=== PATIENT | male | born 1945 | race Caucasian/White ===

== ENCOUNTER → 2019-06-30 08:27 | Outpatient (CLI) | payer MEDICARE, OTHER, SELFPAY ==
[2018-12-30 11:55] VITALS: BMI 30.1
--- NOTE | 2019-06-30 08:29 | ECHOD_ITS ---
Reason For Study: Afib, Aflutter Procedure This was a 2D Doppler, Color Flow transthoracic echocardiogram. Exam performed in department. Left Ventricle Normal LV size. Mid cavitary false tendon noted. Left ventricular systolic function is normal. The estimated ejection fraction is 55 %. No regional wall motion abnormalities noted. Right Ventricle Normal RV size. Normal systolic function. Atria The left atrium is mildly enlarged. The right atrium is mildly enlarged. Tricuspid Valve Normal tricuspid valve. Mild to moderate (1-2+) tricuspid valve insufficiency. Pulmonary artery systolic pressure is 52 mmHg. Moderate pulmonary hypertension. Aortic Valve Trisinus/trileaflet aortic valve. Mild focal aortic valve calcification. Peak aortic valve gradient 49 mmHg. Mean aortic valve gradient 30 mmHg. Moderate aortic stenosis. Mild (1+) aortic valve insufficiency. Pulmonic Valve Normal pulmonic valve. Great Vessels Normal aortic root. The pulmonary artery is normal size. Normal inferior vena cava. Pericardium/Pleural No pericardial effusion. MMode/2D Measurements & Calculations LVIDd: 4.9 cm IVSd: 1.2 cm LVOT diam: 2.0 cm LVIDs: 3.8 cm LVPWd: 1.0 cm LVOT area: 3.0 cm2 RVDd: 3.3 cm FS: 21.5 % Ao root diam: 3.0 cm LAV(MOD-bp): 64.5 ml LVAd ap4: 28.0 cm2 LAV(MOD-bp) Indexed: 30.1 ml/m2 EDV(MOD-sp4): 87.2 ml LAV(MOD-sp2): 63.5 ml EDV(sp4-el): 89.6 ml LAV(MOD-sp4): 65.1 ml LVAs ap4: 17.3 cm2 ESV(MOD-sp4): 38.5 ml ESV(sp4-el): 39.8 ml EF(MOD-sp4): 55.8 % EF(sp4-el): 55.6 % SV(MOD-sp4): 48.7 ml SV(sp4-el): 49.8 ml LA A4 area: 22.4 cm2 LA dimension(2D): 4.9 cm RA A4 area: 21.1 cm2 Doppler Measurements & Calculations MV E max julia: 136.1 cm/sec MV V2 max: 143.0 cm/sec Ao V2 max: 351.0 cm/sec MV max P.2 mmHg Ao max P.4 mmHg MV V2 mean: 84.4 cm/sec Ao V2 mean: 261.6 cm/sec MV mean P.4 mmHg Ao mean P.7 mmHg MV V2 VTI: 28.0 cm Ao V2 VTI: 86.2 cm MVA(VTI): 2.3 cm2 SRAVAN(I,D): 0.75 cm2 SRAVAN(V,D): 0.71 cm2 AI max julia: 487.6 cm/sec LV V1 max: 83.1 cm/sec SV(LVOT): 64.3 ml AI max P.1 mmHg LV V1 max P.8 mmHg AI dec slope: 258.6 cm/sec2 LV V1 mean P.8 mmHg AI P1/2t: 552.2 msec LV V1 mean: 65.9 cm/sec LV V1 VTI: 21.4 cm PA V2 max: 89.2 cm/sec TR max julia: 345.5 cm/sec TR max P.7 mmHg Interpretation Summary Normal LV size. Left ventricular systolic function is normal. The estimated ejection fraction is 55 %. No regional wall motion abnormalities noted. Mean aortic valve gradient 30 mmHg. Moderate aortic stenosis. Mild (1+) aortic valve insufficiency. Pulmonary artery systolic pressure is 52 mmHg. Moderate pulmonary hypertension. Ordering Physician: Toney Vance Referring Physician: Daryn Burgess Performed By: Shirin Torrez, RDCS, RVT
== END ==
PROVIDERS: PCP Internal Medicine; Referring Provider Internal Medicine Cardiovascular Disease; Visit Provider Internal Medicine Cardiovascular Disease
DX: I35.2 Nonrheumatic aortic (valve) stenosis with insufficiency (principal)
CPT/HCPCS: 93306

== ENCOUNTER → 2019-11-02 12:53 | Outpatient (CLI) | payer MEDICARE, OTHER, SELFPAY ==
[2018-12-30 11:55] VITALS: BMI 30.1
[2019-11-02 13:16] LABS: International Normalized Ratio 2.7; Prothrombin Time (Protime)PT. 28.4 SECONDS (11.7-14.9)
== END ==
PROVIDERS: PCP Internal Medicine; Referring Provider Internal Medicine; Visit Provider Internal Medicine
DX: I48.20 Chronic atrial fibrillation, unspecified (principal)
CPT/HCPCS: 85610

== ENCOUNTER → 2022-12-06 | Outpatient (CLI) | payer MEDICARE, OTHER, SELFPAY ==
--- NOTE | 2022-12-06 12:49 | CT_ITS ---
STUDY: CT RIGHT SHOULDER REASON FOR EXAM: Male, 77 years old. Osteoarthrosis of the right shoulder. Preoperative planning. RADIATION DOSAGE (If Supplied By Facility): CTDIvol = ( 30.95 ) mGy, DLP = ( 742.25 ) mGycm TECHNIQUE: The patient was scanned in a multi detector CT scanner. High resolution transaxial imaging was performed without the administration of intravenous contrast material. Sagittal and coronal images were reconstructed. Individualized dose optimization techniques were used for this CT. COMPARISON: None. FINDINGS: Osteopenia. Superior migration of the humeral head which resides under the acromion with minimal erosive changes of the acromion. Findings compatible with rotator cuff degeneration. Moderate-sized glenohumeral joint effusion. Severe arthrosis of the glenohumeral joint with osteophytes and subchondral cyst formation. Moderate to severe arthrosis of the AC joint with marked AC joint hypertrophy. Normal soft tissues. CT/Extremity Upper without Contra IMPRESSION: Osteopenia with superior migration of the humeral head and minimal erosive changes of the acromion, compatible with rotator cuff degeneration. Severe arthrosis of the glenohumeral joint with a moderate-sized glenohumeral joint effusion. Moderate to severe arthrosis of the AC joint with marked AC joint hypertrophy. Electronically Signed: Arik Garcia MD at 13:46 EDT ,
== END | disposition home or self-care (01) ==
LOC: CT 12:45
PROVIDERS: PCP Internal Medicine; Referring Provider Student in an Organized Health Care Education/Training Program; Visit Provider Student in an Organized Health Care Education/Training Program
DX: M19.011 Primary osteoarthritis, right shoulder (principal); M25.511 Pain in right shoulder
CPT/HCPCS: 73200

== ENCOUNTER 2023-01-09 12:43 | Observation (INO) | payer MEDICARE, OTHER, SELFPAY ==
--- NOTE | 2022-12-31 11:01 | RAD_ITS ---
STUDY: X-RAY CHEST REASON FOR EXAM: Male, 77 years old patient presents for pre-op evaluation. TECHNIQUE: PA and lateral views of the chest. COMPARISON: Prior comparable comparison studies are not available for review at this time. FINDINGS: The patient has a left-sided intracardiac pacemaker. Lungs are hyperexpanded with prominence of the bronchovascular markings. There is no demonstrated pleural abnormality. There is mild cardiac enlargement. There appears to be aortic valvular prosthesis. Normal mediastinum and ml. There is prominence of the pulmonary hilar arteries with peripheral pulmonary vascular congestion. There is atherosclerotic calcification of the aortic arch with tortuosity. There are diffuse degenerative changes of the visualized thoracic spine. Normal visualized ribs, clavicles, and shoulders. There is no demonstrated abnormality of the visualized soft tissue structures of the upper abdomen. RAD/Chest PA and Lateral IMPRESSION: Cardiomegaly and mild pulmonary vascular congestion. Electronically Signed: Cristiane Carmona MD at 4:59 EDT ,
--- NOTE | 2022-12-31 11:02 | EKG12_ITS ---
Test Reason : PRE OP Blood Pressure : / mmHG Vent. Rate : 080 BPM Atrial Rate : 050 BPM P-R Int : 000 ms QRS Dur : 128 ms QT Int : 428 ms P-R-T Axes : 000 166 021 degrees QTc Int : 493 ms Ventricular-paced rhythm Biventricular pacemaker detected Abnormal ECG No previous ECGs available Confirmed by EHSAN LEZAMA, JR ([id number]), international editorial producer PAUL REICH ([id number]) on 01/01/2023 10:02:23 AM Referred By: Harlan Levin Confirmed By:FERNANDO MOSER MD
[2022-12-31 12:22] LABS: Partial Thromboplast Time 42.2 Seconds (24.1-36.2)
[2022-12-31 12:23] LABS: Absolute Lymphocyte Count 1.65 X10^3/uL (0.83-4.51); Absolute Neutrophil Count 5.4 X10^3/uL (2.0-7.7); Basophil# 0.02 X10^3/uL; Basophil% 0.2 % (0-1); Eosinophil# 0.09 X10^3/uL; Eosinophils% 1.1 % (0-5); Hematocrit 42.8 % (40-54); Hemoglobin 13.6 g/dL (13.0-16.5); Lymphocyte # 1.65 X10^3/ul (0.83-4.51); Lymphocyte % 20.5 % (19-41); Mean Corp Hgb Conc 31.8 g/dL (32-36); Mean Corpuscular Hgb 31.8 pg (27.0-32.0); Monocyte# 0.81 X10^3/uL; Monocyte% 10.1 % (0-10); NRBC Flagged by Analyzer 0 % (0-5); Neutrophil # 5.43 X10^3/uL (2.7-7.7); Neutrophil % 67.5 % (47-70); Platelet Count 212 K/mm3 (150-450); RBC Distribution Width CV 14.3 % (11.6-14.6); RBC Distribution Width SD 52.5 fl (35.1-43.9); Red Blood Count 4.28 M/mm3 (4.6-6.2); White Blood Count 8.1 K/mm3 (4.4-11.0)
[2022-12-31 12:44] LABS: Magnesium 2.4 mg/dL (1.6-2.6)
[2022-12-31 12:45] LABS: Albumin, Serum 3.5 g/dL (3.2-5.0); Anion Gap 5 (5-15); BUN 28 mg/dL (7-18); Calcium,Total 8.6 mg/dL (8.5-10.1); Chloride 107 mmol/L (98-107); Creatinine, Serum 1.87 mg/dL (0.70-1.30); EST Glomerular Filtration Rate 37 mL/min (>60); Est Glom Filt Rate - Afr Amer 45 mL/min (>60); Glucose 124 mg/dL (74-106); Potassium 4.4 mmol/L (3.5-5.1); Sodium Level 138 mmol/L (136-145)
[2023-01-09] VITALS (13 sets, daily range): BP systolic 106–161; BP diastolic 68–99; PULSE 79–87; RESP 14–22; TEMP 36.1–36.4; O2SAT 91–99; BMI 32.6
[2023-01-09 08:25] LABS: INR Fingerstick 1.5; Prothrombin Time Fingerstick 16.5 SEC (11.7-14.9)
[2023-01-09] MEDS: Gabapentin 600 MG Tablet PO (08:51)
[2023-01-09] MEDS: Acetaminophen 500 MG Tablet 1000 MG PO ×3 (08:51→21:28)
[2023-01-09] MEDS: Magnesium 1 GM over 15 mins IV (08:53)
[2023-01-09] MEDS: Lactated Ringers 1,000 ML 15 ML IV ×2 (08:56→13:20)
[2023-01-09] MEDS: Vancomycin HCl 1,500 MG in 0.9% Normal Saline (500mL Bag) 500 ML 250 MG IV (08:57)
--- NOTE | 2023-01-09 10:30 | SHO_PTH ---
PATIENT: SUGEY ZIEGLER LOC: [facility]3 U#:[id number] AGE/SX: 77/M ROOM: MT312 RE01/09/[address]: Dr. Harlan Levin DO : 1945 BED: 1 DIS: 01/10/2023 SPEC #: [id number] RECD: 01/09/23 14:39 STATUS: RIAZ HAQUEAmanda #: [id number] CHRISTIAN: 01/09/23 10:[address]: Harlan Levin DEPT: SURGICAL PATHOLOGY RECD BY: Olamide Fernández ENTERED: 01/10/23 07:51 SP TYPE: HUMERUS OTHR DR: DO Dr. Daryn Sotelo MD Tissues: Humerus, NOS Procedures: Decalcification bone/plaque Surgery Specimen Level IV HEADER OPERATION: ERAS, total shoulder replacement, Reverse PRE-OP DIAGNOSIS: Osteoarthritis right shoulder TISSUE SUBMITTED: Bone right shoulder MICROSCOPIC DIAGNOSIS Bone right shoulder, total shoulder replacement/resection: Humeral head with degenerative osteoarthritic changes. KAN:bay 01/15/2023 MICROSCOPIC DESCRIPTION Slides are reviewed. GROSS DESCRIPTION Received is one container labeled with the patient's name and designated bone right shoulder. The specimen consists of a humeral head measuring 5.0 x 5.0 x 1.5 cm. The articular surface shows areas of erosion and osteophyte formation. No soft tissue is identified. Asphalt Spreader Operator sections are submitted in one cassette after decalcification. / KAN:bay 01/10/2023 TC:5 CPT: 55027, 09702
[2023-01-09] MEDS: Cefazolin 2 GM in 0.9% Normal Saline (100mL Bag) 100 ML IV (10:45)
[2023-01-09] MEDS: TXA 1000mg in NS100 100ml (IVPB at Incision) 660 MG IV (10:55)
[2023-01-09 11:07] LABS: Bedside Glucose 121 mg/dL (74-106)
[2023-01-09 13:22] LABS: Bedside Glucose 124 mg/dL (74-106)
--- NOTE | 2023-01-09 13:35 | RAD_ITS ---
STUDY: X-RAY - RIGHT SHOULDER REASON FOR EXAM: Male, 77 years old. Postop from right shoulder replacement surgery TECHNIQUE: 2 view(s) of the shoulder. COMPARISON: None. FINDINGS: Patient is postop from replacement of the right glenohumeral joint. Alignment of the components is anatomic. No plain film evidence of postoperative complication. Normal postoperative soft tissue swelling and subcutaneous emphysema. Normal alignment of the AC joint. No upper rib fracture or pneumothorax RAD/Shoulder min 2 Views IMPRESSION: Replaced right glenohumeral joint demonstrates anatomic alignment, no plain film evidence of postoperative complication Electronically Signed: William Olguin MD at 15:31 EDT ,
--- NOTE | 2023-01-09 13:52 | PCM.PN.HOSP ---
Reason for Visit Reason for Visit: Right shoulder osteoarthritis Subjective Subjective Mr. Calixto is a 77-year-old male who presented to [facility] on 01/09/2023 for an elective right reverse shoulder replacement done by Dr. Levin. He had been having ongoing issues that failed outpatient management and elected for surgical intervention. He has a past medical history of aortic stenosis, hypertension, permanent atrial fibrillation, CKD stage III, DM-2, hyperlipidemia, GERD, incontinence, TASH, history of bladder cancer, and depression. We were consulted postoperatively for medical management of his chronic medical issues. I evaluated the patient postoperatively on the medical floor after admission and admitted from PACU. Patient states he is having no pain and feeling well. Tolerating clear liquids out difficulty and would like to have regular food if possible. Objective Data Objective Data Vital Signs: Vital Signs Temp Pulse Resp BP Pulse Ox O2 Del Method O2 Flow Rate 97.1 F L 80 20 H 154/94 H 99 Nasal Cannula 4 01/09/23 13:00 01/09/23 13:45 01/09/23 13:45 01/09/23 13:45 01/09/23 13:45 01/09/23 13:45 01/09/23 13:45 Oxygen Flow Rate (L/min) 4 Oxygen Delivery Method Nasal Cannula Weight: 103.3 kg Body Mass Index (BMI) 32.6 Intake & Output: Intake and Output for Last 24 Hours 01/07/23 01/08/23 01/09/23 23:59 23:59 23:59 Intake Total 1852 / 1852 Balance 1851 / 1851 Lab / Micro Data 12/31/22 11:36 12/31/22 11:36 Labs: Laboratory Results - last 24 hr 01/09/23 08:23: POC PT 16.5 H, INR 1.5 01/09/23 08:36: POC Glucose 121 H 01/09/23 13:05: POC Glucose 124 H Micro: Microbiology 12/31/22 11:36 Swab (Method) Nasal Screen MRSA/MSSA - Final Physical Exam Const alert, oriented x3, no apparent distress, healthy appearing and well nourished Constitutional Narrative: Obese, elderly, white male, sitting up in bed, multiple family members at bedside, appears comfortable nontoxic HEENT head/scalp atraumatic, moist oral mucous membranes and oropharynx normal HEENT Narrative: Mallampati 3, no thrush Head and Scalp: normocephalic Resp normal respiratory effort, no retractions, no use of accessory muscles and clear to auscultation bilaterally Auscultation: Negative for rales, rhonchi or wheezes Cardio regular rate, S1 normal heart sound, S2 normal heart sound, no murmurs, no rub, no gallops and no clicks Cardio Narrative: Irregularly irregular rhythm GI normal to inspection, nondistended, normoactive bowel sounds, soft to palpation and non-tender Extremity no clubbing, cyanosis or edema Extremity Narrative: Pedal pulses are 2+ Neuro oriented x3 Neuro Narrative: Unable to move right upper extremity due to surgery and in a sling but all other extremities move symmetrically without any deficits noted Speech: speech normal Psych affect normal Psych Narrative: Very pleasant, jovial and jokes throughout my exam Assessment & Plan Assessment/Plan (1) Primary osteoarthritis, right shoulder: PLAN: Plan Right shoulder osteoarthritis -Postop day 0 reverse right total shoulder arthroplasty -Pain management per primary service -Recommend bowel regimen -Postoperative therapy services per primary service -Outpatient follow-up with surgeon after discharge per his instructions Chronic atrial fibrillation -Patient is status post pacemaker placement for what sounds to be sick sinus syndrome -Restart warfarin once okay with surgery -INR 1.5 today -Continue metoprolol HTN/HPL/aortic valve stenosis -Continue metoprolol -Continue home aspirin -Continue home atorvastatin -Continue home lisinopril -Most recent echocardiogram we have access to was done in 2020 and showed an EF of 55% with a mean aortic valve gradient of 30 mmHg demonstrating moderate aortic stenosis with mild aortic valve insufficiency and a pulmonary artery systolic pressure of 52 mmHg indicating moderate pulmonary hypertension Overactive bladder/incontinence -Continue home oxybutynin GERD -Continue home PPI DM-2 -Continue home Jardiance -Diabetic/cardiac diet once full diet has been initiated -Preoperative hemoglobin A1c was 6.0 CKD stage IIIb -Preoperative serum creatinine is 1.87 I have nothing else to compare this to however -Repeat BMP in a.m. -Avoid nephrotoxins next-would avoid NSAIDs as much as possible History of TASH -If patient is on CPAP still will recommend continuing at night and with naps History of bladder cancer -Chronic stable BPH -Continue home finasteride Obesity -BMI 32.7 Recommend weight loss -Complicates treatment, prognosis, outcomes DVT prophylaxis -Per primary Charges/Coding Visit Charges Inpatient E&M: 72050 Subs Hosp L2
--- NOTE | 2023-01-09 15:04 | OP.PCM_ITS ---
Report of Operation Date of Procedure: 01/09/23 Description of Surgical Findings:: Preoperative diagnosis: Right shoulder rotator cuff arthropathy Postoperative diagnosis: Right shoulder rotator cuff arthropathy Procedure: Right Reverse total shoulder arthroplasty Surgeon: Harlan Levin DO Stamper Blocker: Noris Rhodes PA-C Anesthesia: General endotracheal Coroner: Reuben Selby CRNA Complications: None apparent Drains: None Estimated blood loss: 200 cc Urinary output: None IV fluids: 1000 cc crystalloid Specimens: Right humeral head Surgical implants: Tornier Aequalis PerFORM+ reversed baseplate 29 mm full wedge, standard glenosphere cobalt chrome 39 mm diameter, Tornier perform inlay stem size #3, 0 mm retentive size number 3 39 mm diameter polyethylene insert, short central post and peripheral screws x4. Surgical indications: This is a 77-year-old male with persistent right shoulder pain. He did have worsening symptoms over the last several months. X-rays revealed rotator cuff arthropathy. I recommended a reverse shoulder arthroplasty. We obtained a preoperative CT scan for planning. The risks, benefits, alternatives the procedure was reviewed with the patient and he agreed to proceed. Risks included but were not limited to bleeding, infection, instability, loss of life or limb, risk of anesthesia, neurovascular injury, persistent pain, stiffness, prolonged immobilization, need for additional surgery, loosening of orthopedic hardware. He expressed understanding and wished to proceed with surgery. Surgical details: Patient arrived to [facility] morning of the procedure and was greeted by the same day surgery staff. Prior to his procedure, I greeted the patient in the preoperative holding area I identified the patient by name, record number, and date of . Informed consent was confirmed. The operative extremity was marked. All questions were answered to patient satisfaction. An interscalene block was administered prior to procedure by anesthesia staff for postoperative and intraoperative analgesia. At time of his procedure, patient was brought to the operative suite and positioned supine on a standard table with a beachchair attachment. General anesthesia was induced after all bony prominences were well-padded. Endotracheal tube was placed. After adequate anesthesia and securing the tube, we prepared the patient to be positioned in the beachchair position. A well- padded porter head was applied. The nonoperative extremity was placed in a well arm saldana. He was then brought into the beachchair position after we confirmed an appropriate blood pressure. We then spun the bed 45 degrees. The operative extremity was then prepared. In the butterfly wing of the bed was removed and a well-padded torso strap was applied to secure the patient to the bed. The operative extremity was now free. We then prepped and draped the right upper extremity in normal, sterile orthopedic fashion. We then performed a timeout with all parties in attendance in agreement with the side, site, and operation be performed. 2 g Ancef was administered prior to incision by anesthesia staff, as well as 1 g TXA IV. No concerns were voiced and we elected to proceed. I first marked a standard deltopectoral incision just lateral to the coracoid process in line with the long axis of the humerus. Skin was sharply incised with 10 blade scalpel. I then dissected bluntly through the subcutaneous layers and found the fat stripe between the deltoid and pectoralis major. The cephalic vein was then identified and protected. It was retracted laterally with the deltoid. I then bluntly dissected underneath the deltoid with a Beltran elevator. Breanna retractor was placed. The upper 1 cm of the pectoralis major was released. Biceps tendon was not encountered and appeared to be chronically torn. The supraspinatus was completely torn and retracted with an exposed greater tuberosity. I then performed a subscapularis peel while rotating the humerus externally. I tagged the subscapularis for possible repair later with a tagging suture. Humeral head was then dislocated anteriorly. Appropriate access to the humeral head was confirmed. I then subluxed the humeral head posteriorly with a Fukuda retractor placed around the posterior lip of the glenoid. Inferior capsule was tension. I was able to palpate the axillary nerve. Inferior capsule was then released to the 4 o'clock position of the glenoid face. 3 sided subscapularis release was performed with Bovie cautery. I then remove the Fukuda retractor and redislocated the shoulder anteriorly. I then made a anatomic neck cut of the cartilaginous surface of the humeral head. Sizing plate for a size # 3 stem was utilized to determine appropriate reaming size. A central pin was placed engaging the lateral cortex of the humerus. A size # 3 reamer was used to ream the humeral metaphysis and prepare for the inlay stem. A canal finding reamer was utilized prior to sequential broaching to a size # 3 short stem with excellent rotational and axial purchase in the humerus. I remove the broach handle left the size # [address] I then subluxed the humerus posterior to the glenoid. I then placed retractors around the posterior and anterior glenoid to expose the glenoid. Glenoid labrum was removed with Bovie cautery protecting the axillary nerve. We then used the custom guide from [employer] to position our centering pin, exiting approximately 25 mm from the joint surface along the anterior scapula. Guide was removed and pin was analyzed and compared to preoperative planning. It appeared to be in appropriate position. The full wedge reamer was then placed over top of the centering pin. I reamed to appropriate depth with planned wedge orientation via preoperative template. We then removed the reamer and used the cannulated drill for the short central post. Post and baseplate was assembled on the back table. We then inserted the baseplate and central post the assembled baseplate to an appropriate depth with good press-fit purchase. A Winona was used to confirm depth. Screws then were placed in the peripheral holes with good purchase. The baseplate had excellent purchase and the entire scapula would rotate with rotation of the baseplate. We then impacted the 39 mm glenosphere with a standard eccentricity and tightened the locking screw mechanism. We then removed retractors and turned our attention back to the humerus. I placed a standard +0 millimeters retentive polyethylene insert. I then reduced the shoulder. There was excellent range of motion and stability in all planes of motion. We selected this as our final size. We removed trials from the humerus after final dislocation. I copiously irrigated the canal. Broach was placed on hand and then impacted to an appropriate depth. Final + 0 mm retentive polyethylene insert was placed. Final reduction was then performed. The subscapularis was then identified with a tagging suture. Repair would have been likely under undue tension and likely failed. I elected to not perform a subscapularis repair. We then copiously irrigated the wound with sterile Betadine and normal saline solution. We reapproximated the interval with 0 Vicryl suture. Subcutaneous layers were reapproximated with 2 -0 Vicryl suture. Skin was finally running V- Loc 3-0 Monocryl suture and Dermabond. A sterile silver Mepilex dressing was applied. Patient was then placed in an ultra sling. Patient tolerated procedure well without complication. He was positioned back in the supine position extubated in the operative suite. He was transferred to the rney and subsequently to PACU in stable condition. Need for skilled clinical education assistant: Noris Rhodes PA-C was critical to the outcome of the case. During the course of the procedure the physician clinical education assistant played a vital role. Her intimate knowledge of my steps in the procedure aided in safe and expedient completion of the procedure. The PA played a vital role in positioning particularly in obtaining the appropriate positioning. The PA was also vital in the retraction of soft tissues during the exposure and protecting vital structures. The PA was also vital and protecting soft tissues during time s of bony cuts. She also played a vital role in closure with my direct supervision. The PA was also important during reduction and dislocation of the joint and trials intraoperatively. Intraoperative medications: 2 g Ancef IV, 1 g TXA IV x2 Post Operative Plan: Patient will be placed in observation for medical monitoring. Anticipate discharge home tomorrow. Weightbearing: Nonweightbearing right upper extremity, okay for pendulums. Range of motion of wrist elbow and hand as tolerated. Antibiotics: 2 g Ancef IV prior to incision, 24 hours IV antibiotics postoperatively. Plan for discharge on 14 days twice daily doxycycline DVT Prophylaxis: Aspirin, restart home warfarin this evening Ayers: None Dressing: Maintain silver dressing x7 days. Okay to shower dressing on started on day 4 X-Rays: 2 weeks postop in the office Pain Medication: Oxycodone Rx upon discharge Follow-up: 2 weeks post-operatively with me in the office
[2023-01-09] MEDS: Cefazolin 1 GM/50 ML BAG IV (18:41)
[2023-01-09] MEDS: Diclofenac 75 MG Tablet PO (21:27)
[2023-01-09] MEDS: Senna/Docusate Sodium 1 Tablet 2 TABLET PO (21:27)
[2023-01-10] MEDS: Cefazolin 1 GM/50 ML BAG IV (02:45)
[2023-01-10 03:24] VITALS: BP 106/65; PULSE 80; RESP 16; TEMP 36.6; O2SAT 96
[2023-01-10] MEDS: Acetaminophen 500 MG Tablet 1000 MG PO ×2 (05:20→13:55)
[2023-01-10 06:35] LABS: Hematocrit 37.9 % (40-54); Hemoglobin 11.7 g/dL (13.0-16.5); Mean Corp Hgb Conc 30.9 g/dL (32-36); Mean Corpuscular Hgb 31.6 pg (27.0-32.0); Mean Corpuscular Volume 102.4 fL (80-94); Mean Platelet Vol. 10.3 fl (6.2-12.0); Platelet Count 164 K/mm3 (150-450); RBC Distribution Width CV 14.4 % (11.6-14.6); RBC Distribution Width SD 54.6 fl (35.1-43.9); White Blood Count 12.6 K/mm3 (4.4-11.0)
[2023-01-10 07:04] LABS: Anion Gap 5 (5-15); BUN 28 mg/dL (7-18); Calcium,Total 8.1 mg/dL (8.5-10.1); Chloride 105 mmol/L (98-107); Creatinine, Serum 1.87 mg/dL (0.70-1.30); EST Glomerular Filtration Rate 37 mL/min (>60); Est Glom Filt Rate - Afr Amer 45 mL/min (>60); Estimated Creatinine Clearance 33.62 ml/min; Glucose 143 mg/dL (74-106); Potassium 4.3 mmol/L (3.5-5.1); Sodium Level 134 mmol/L (136-145)
--- NOTE | 2023-01-10 07:06 | PCM.PN.ORT ---
Subjective Subjective Patient seen and examined. Reports minimal to no pain. Denies fevers, chills, nausea vomiting, chest pain or shortness of breath. Urinating without difficulty. Denies numbness or tingling. Objective Data Objective Data Vital Signs: Vital Signs Temp Pulse Resp BP Pulse Ox O2 Del Method O2 Flow Rate 97.8 F 80 16 106/65 96 Room Air 4 01/10/23 03:24 01/10/23 03:24 01/10/23 03:24 01/10/23 03:01/10/23 03:01/10/23 03:24 01/09/23 14:29 Oxygen Flow Rate (L/min) 4 Oxygen Delivery Method Room Air Weight: 227 lb 11.8 oz Body Mass Index (BMI) 32.6 Intake & Output: Intake and Output for Last 24 Hours 01/08/23 01/09/23 01/10/23 23:59 23:59 23:59 Intake Total 2152 / 2 260.5 / 260.5 Balance 215 / 215 260.5 / 260.5 Lab / Micro Data 01/10/23 05:57 01/10/23 05:57 Labs: Laboratory Results - last 24 hr 01/09/23 08:23: POC PT 16.5 H, INR 1.5 01/09/23 08:36: POC Glucose 121 H 01/09/23 13:05: POC Glucose 124 H 01/10/23 05:57: WBC 12.6 H, RBC 3.70 L, Hgb 11.7 L, Hct 37.9 L, MCV 102.4 H, MCH 31.6, MCHC 30.9 L, RDW Std Deviation 54.6 H, RDW Coeff of Colltete 14.4, Plt Count 164, MPV 10.3, Sodium 134 L, Potassium 4.3, Chloride 105, Carbon Dioxide 24.0, Anion Gap 5, BUN 28 H, Creatinine 1.87 H, Estim Creat Clear Calc 33.62, Est GFR (MDRD) Af Amer 45 L, Est GFR (MDRD) Non-Af 37 L, BUN/Creatinine Ratio 15.0, Glucose 143 H, Calcium 8.1 L Micro: Microbiology 12/31/22 11:36 Swab (Method) Nasal Screen MRSA/MSSA - Final Radiography Diagnostic Testing: Radiology Impression Shoulder X-Ray 01/09/23 13:35 IMPRESSION: Replaced right glenohumeral joint demonstrates anatomic alignment, no plain film evidence of postoperative complication Electronically Signed: William Olguin MD at 15:31 EDT , Physical Exam Narrative General - A&Ox3, NAD. VSS/AF. Right upper Extremity - SILT & 5/5 in radial, ulnar, musculocutaneous, axillary, and median nerve distributions. Radial, ulnar pulses 2+. Compartments soft and compressible. BCR in finger tips. Incisional UltraSling in place dressing C/D/I. UltraSling in place. Assessment & Plan Assessment/Plan (1) Primary osteoarthritis, right shoulder: PLAN: POD#1 s/p right reverse total shoulder arthroplasty - Pain control - Medicine following for medical management -Occupational Therapy-pendulums only right shoulder, okay for gentle active range of motion of the right elbow, wrist and hand. - DVT PPX -Coumadin restarted, SCDs, ERIC english, early mobilization - Case management - D/C planning Anticipate discharge later today if he does well with occupational therapy and stable from medical standpoint. Plan for 2 weeks prophylactic antibiotics upon discharge.
[2023-01-10 07:16] VITALS: PULSE 80
[2023-01-10] MEDS: Metoprolol(XL)Succ 25 MG Tablet PO (07:16)
[2023-01-10] MEDS: Aspirin E.C. 81 MG Tablet PO (07:16)
[2023-01-10] MEDS: Senna/Docusate Sodium 1 Tablet 2 TABLET PO (07:16)
[2023-01-10] MEDS: Multivitamins,Therapeutic Tablet 1 TABLET PO (07:17)
[2023-01-10] MEDS: Lisinopril 5 MG Tablet PO (07:17)
[2023-01-10] MEDS: Diclofenac 75 MG Tablet PO (07:17)
[2023-01-10] MEDS: Empagliflozin 10 MG Tablet PO (07:17)
[2023-01-10] MEDS: Tolterodine Tartrate 2 MG CAP.SA PO (07:17)
[2023-01-10] MEDS: Cholecalciferol (VIT D3) 25 MCG TABLET (1,000 UNITS) PO (07:17)
[2023-01-10] MEDS: Pantoprazole Sodium 20 MG Tablet PO (07:18)
[2023-01-10] MEDS: lamoTRIgine 100 MG Tablet 200 MG PO (07:18)
[2023-01-10] MEDS: Atorvastatin Calcium 40 MG Tablet PO (07:18)
[2023-01-10] MEDS: Finasteride 5 MG Tablet PO (07:18)
[2023-01-10] MEDS: Flu Vacc QS2023-24(65YR UP)/PF 240 MCG/0.7 ML Syringe IM (07:25)
[2023-01-10 08:18] VITALS: BP 126/75; PULSE 80; RESP 16; TEMP 36.3; O2SAT 96
--- NOTE | 2023-01-10 10:05 | CASEMGMT ---
JOHNATHAN ANAYA Face to Face with patient for initial transition planning/care coordination assessment. JOHNATHAN ANAYA introduced self and role at [facility]. Patient sitting up in chair, alert and oriented. Patient willing to participate in assessment and is able to answer all questions appropriately. Care providers, pharmacy, and demographics verified. Patient wishes to discharge home. Patient states he has no further needs or concerns at this time. CM to follow for discharge planning needs that may arise. PCP:Olu Specialists:Aditya at [facility] manages coumadin only; Sherry cardio; [facility]; [facility], ortho; [facility], [facility] Preferred [facility]acy[facility] Insurance:[employer] Prescription Benefit: yes LNOK:Jenifer Calixto, ; vincent Duron Living Arrangements:Pt lives with in a two story home with 2 steps to enter with a rail. Pt has a stairlift to the second floor of the home. Pt reports he was I in ADL's and denies concerns at home. Transportation: Pt drives self and denies concerns with transportation. Pt and dtr are able to transport pt until he can drive again. DME: rollators, electric w/c, walkers, cane and CPAP HHC:Pt denies hx of SNF:[facility] Disposition Plan:Home
[2023-01-10 11:00] VITALS: BP 82/54; PULSE 81; RESP 16; TEMP 36.4; O2SAT 98
[2023-01-10 11:49] VITALS: BP 111/83; PULSE 78; RESP 16; TEMP 36.4; O2SAT 99
--- NOTE | 2023-01-10 11:52 | CASEMGMT ---
Social Work SW met with pt to discuss advance directives.? Pt thinks he has completed a living will and health care POA naming his Jenifer Calixto.? Pt notified that documents are not on file at [facility] and SW requested they be brought in for scanning into the EMR.?Pt states he will talk to his regarding this and may want to complete the documents if they cannot find them at home. SW provided pt with [employer] card and educated pt that SW is available to assist with completion of documents. YAO Wade
[2023-01-10 14:02] VITALS: BP 96/74; PULSE 79
--- NOTE | 2023-01-10 15:00 | DCINST_ITS ---
Discharge Instructions Follow Up Care Test Results: Test results from this visit will be discussed in further detail at your follow- up appointment, if applicable. Discharge Plan Admission Admit Date/Time: 01/09/23 12:43 Primary Reason for Your Visit: Right reverse shoulder arthroplasty Attending Provider: Harlan Levin Primary Care Provider: Daryn Burgess Consulting Providers: Harlan Moralez Instructions Additional Instructions / Restrictions: Follow preprinted instructions from your surgeons office Recheck INR 01/13/23 Discharge Orders/Prescriptions Prescriptions: New oxycodone 5 mg Tablet 5 - 10 mg PO Q4H PRN PRN (Reason: Pain Score 4-10) 7 Days Qty: 28 0RF doxycycline hyclate 75 mg tablet 75 mg PO BID 14 Days Qty: 28 0RF Continued lamotrigine 200 mg tablet 200 mg PO DAILY oxybutynin chloride 10 mg tablet extended release 24hr 10 mg PO DAILY esomeprazole magnesium 20 mg capsule,delayed release(DR/EC) 20 mg PO DAILY sulindac 200 mg tablet 200 mg PO BID atorvastatin 40 mg tablet 40 mg PO DAILY metoprolol succinate 50 mg tablet extended release 24 hr 25 mg PO DAILY finasteride 5 mg tablet 5 mg PO DAILY lisinopril 5 mg tablet 5 mg PO DAILY cholecalciferol (vitamin D3) 1,000 unit capsule 1,000 unit PO DAILY omega-3 fatty acids 500 mg capsule 500 mg PO DAILY polyvinyl alcohol [Artificial Tears (polyvin alc)] 1.4 % drops 1 drp OPHTHALMIC BID-QID PRN (Reason: dry eyes) multivitamin Tablet 1 tab PO DAILY meclizine 12.5 mg tablet 12.5 mg PO TID PRN (Reason: dizziness or vertigo) warfarin 5 mg tablet 5 mg PO .COMPLEX Rx Instructions: 2.5 mg on SATURDAYS and 5 mg all other days; Jardiance 10 mg tablet 10 mg PO DAILY glucosamine sulfate [Glucosamine] 500 mg tablet 1,000 mg PO DAILY Rx Instructions: administer with a meal aspirin [Adult Low Dose Aspirin] 81 mg tablet,delayed release (DR/EC) 81 mg PO DAILY Other Ambulatory Orders: 12 Lead EKG (Routine) Timeframe: 20221230 Location: None Selected Ordered By: Dr. Harlan Levin Referrals / Follow Up: Harlan Levin DO [Med Staff - Active Staff] - Within 2 Weeks Daryn Burgess MD [Primary Care Provider] - Disposition Disposition (needs filled in before D/C Order can be placed): Home, Self Care
--- NOTE | 2023-01-10 15:32 | CASEMGMT ---
Met with patient to complete STREETER form. STREETER form explained to patient who voiced understanding and signed form. Original form placed in pt?s chart and copy provided to patient.. Angelica Aiken, Discharge Planning Asst.
--- NOTE | 2023-01-10 16:04 | CASEMGMT ---
Social Work Therapy updated SW that pt's is having difficulty caring for herself at home and pt cannot assist her. Pt dgt will be staying with the couple over the weekend. LILA provided pt with a list of private duty aids to assist at home if needed. YAO Wade
--- NOTE | 2023-01-16 07:09 | PCM.DC.SUM ---
Providers Date of Admission: 01/09/23 Primary Care Physician: Dr. Daryn Burgess MD Consultations 01/09/23 12:46 Consult: Hospitalist Routine Consulting Provider: Bailey Ahmadi Reason for Consult: S/p R total shoulder, medical management EMERGENT Consult: No MD Notified: Yes Date Notified: 01/09/23 Time Notified: 16:14 Method of Notification: Text Reason For Visit: Total Shoulder Replacement, Reverse Diagnosis Discharge Diagnosis (1) Primary osteoarthritis, right shoulder: Status: Acute Code(s): M19.011 - Primary osteoarthritis, right shoulder Plan: POD#1 s/p right reverse total shoulder arthroplasty - Pain control - Medicine following for medical management -Occupational Therapy-pendulums only right shoulder, okay for gentle active range of motion of the right elbow, wrist and hand. - DVT PPX -Coumadin restarted, SCDs, ERIC hose, early mobilization - Case management - D/C planning Anticipate discharge later today if he does well with occupational therapy and stable from medical standpoint. Plan for 2 weeks prophylactic antibiotics upon discharge. Medications at Discharge Home Medications atorvastatin 40 mg tablet 40 mg PO DAILY 12/24/18 cholecalciferol (vitamin D3) 25 mcg (1,000 unit) capsule 1,000 unit PO DAILY 12/24/18 esomeprazole magnesium 20 mg capsule,delayed release 20 mg PO DAILY 12/24/18 finasteride 5 mg tablet 5 mg PO DAILY 12/24/18 lamotrigine 200 mg tablet 200 mg PO DAILY 12/24/18 lisinopril 5 mg tablet 5 mg PO DAILY 12/24/18 meclizine 12.5 mg tablet 12.5 mg PO TID PRN dizziness or vertigo 12/24/18 metoprolol succinate 50 mg tablet,extended release 24 hr 25 mg PO DAILY 12/24/18 multivitamin 1 tab PO DAILY 12/24/18 omega-3 fatty acids 500 mg capsule 500 mg PO DAILY 12/24/18 oxybutynin chloride 10 mg tablet,extended release 24 hr 10 mg PO DAILY 12/24/18 polyvinyl alcohol 1.4 % eye drops (Artificial Tears (polyvinyl alcohol)) 1 drp ophthalmic (eye) BID-QID PRN dry eyes 12/24/18 sulindac 200 mg tablet 200 mg PO BID 12/24/18 warfarin 5 mg tablet 5 mg PO .COMPLEX 12/24/18 aspirin 81 mg tablet,delayed release (Adult Low Dose Aspirin) 81 mg PO DAILY 07/13/19 empagliflozin 10 mg tablet (Jardiance) 10 mg PO DAILY 12/26/22 glucosamine sulfate 500 mg tablet (Glucosamine) 1,000 mg PO DAILY 12/26/22 doxycycline hyclate 75 mg tablet 75 mg PO BID 14 days #28 tabs 01/10/23 oxycodone 5 mg tablet 5 - 10 mg (1 - 2 x 5 mg) PO Q4H PRN PRN Pain Score 4-10 7 days #28 tabs 01/10/23 Hospital Course Summary of Care Provided Minutes Spent on Discharge: 15 Hospital Course: Patient underwent uncomplicated right reverse shoulder arthroplasty 01/09/2023. He tolerated procedure well without complication. He was placed in observation overnight for medical monitoring and early convalescence. An internal medicine consult was placed for medical management. No medical or surgical complications were encountered throughout his stay. He worked well with occupational therapy postoperatively. He was able to be safely discharged home in stable condition on postoperative day #1. Physical Exam Narrative General - A&Ox3, NAD. VSS/AF. Right upper Extremity - SILT & 5/5 in radial, ulnar, musculocutaneous, axillary, and median nerve distributions. Radial, ulnar pulses 2+. Compartments soft and compressible. BCR in finger tips. Incisional UltraSling in place dressing C/D/I. UltraSling in place. Weight / BMI Weight Weight: 227 lb 11.8 oz Body Mass Index (BMI) 32.6 ABG / Lab / Microbiology Data 01/10/23 05:57 01/10/23 05:57 Microbiology: Microbiology 12/31/22 11:36 Swab (Method) Nasal Screen MRSA/MSSA - Final Meaningful Use Info Meaningful Use Diagnoses (Choose all that apply): None applicable Discharge Plan Admission Admit Date/Time: 01/09/23 12:43 Primary Reason for Your Visit: Right reverse shoulder arthroplasty Attending Provider: Harlan Levin Primary Care Provider: Daryn Burgess Consulting Providers: Harlan Moralez Instructions Additional Instructions / Restrictions: Follow preprinted instructions from your surgeons office Recheck INR 01/13/23 Discharge Orders/Prescriptions Prescriptions: New oxycodone 5 mg Tablet 5 - 10 mg PO Q4H PRN PRN (Reason: Pain Score 4-10) 7 Days Qty: 28 0RF doxycycline hyclate 75 mg tablet 75 mg PO BID 14 Days Qty: 28 0RF Continued lamotrigine 200 mg tablet 200 mg PO DAILY oxybutynin chloride 10 mg tablet extended release 24hr 10 mg PO DAILY esomeprazole magnesium 20 mg capsule,delayed release(DR/EC) 20 mg PO DAILY sulindac 200 mg tablet 200 mg PO BID atorvastatin 40 mg tablet 40 mg PO DAILY metoprolol succinate 50 mg tablet extended release 24 hr 25 mg PO DAILY finasteride 5 mg tablet 5 mg PO DAILY lisinopril 5 mg tablet 5 mg PO DAILY cholecalciferol (vitamin D3) 1,000 unit capsule 1,000 unit PO DAILY omega-3 fatty acids 500 mg capsule 500 mg PO DAILY polyvinyl alcohol [Artificial Tears (polyvin alc)] 1.4 % drops 1 drp OPHTHALMIC BID-QID PRN (Reason: dry eyes) multivitamin Tablet 1 tab PO DAILY meclizine 12.5 mg tablet 12.5 mg PO TID PRN (Reason: dizziness or vertigo) warfarin 5 mg tablet 5 mg PO .COMPLEX Rx Instructions: 2.5 mg on SATURDAYS and 5 mg all other days; Jardiance 10 mg tablet 10 mg PO DAILY glucosamine sulfate [Glucosamine] 500 mg tablet 1,000 mg PO DAILY Rx Instructions: administer with a meal aspirin [Adult Low Dose Aspirin] 81 mg tablet,delayed release (DR/EC) 81 mg PO DAILY Other Ambulatory Orders: 12 Lead EKG (Routine) Timeframe: 20221230 Location: None Selected Ordered By: Dr. Harlan Levin Referrals / Follow Up: Harlan Levin DO [Med Staff - Active Staff] - Within 2 Weeks Daryn Burgess MD [Primary Care Provider] - Disposition Disposition (needs filled in before D/C Order can be placed): Home, Self Care
== END 2023-01-10 16:59 | disposition home or self-care (01) ==
LOC: SDC 14:28 → MS3 14:28
PROVIDERS: Anesthesiology; Admitting Provider Student in an Organized Health Care Education/Training Program; PCP Internal Medicine; Referring Provider Student in an Organized Health Care Education/Training Program; Visit Provider Student in an Organized Health Care Education/Training Program
PROC: (CPT 23472; principal; 2023-01-09 10:00)
DX: M19.011 Primary osteoarthritis, right shoulder (principal); I27.21 Secondary pulmonary arterial hypertension; E11.22 Type 2 diabetes mellitus with diabetic chronic kidney disease; I48.20 Chronic atrial fibrillation, unspecified; N18.30 Chronic kidney disease, stage 3 unspecified; E78.5 Hyperlipidemia, unspecified; I12.9 Hypertensive chronic kidney disease with stage 1 through stage 4 chronic kidney disease, or unspecified chronic kidney disease; Z79.899 Other long term (current) drug therapy; Z79.84 Long term (current) use of oral hypoglycemic drugs; K21.9 Gastro-esophageal reflux disease without esophagitis; G47.33 Obstructive sleep apnea (adult) (pediatric); Z86.718 Personal history of other venous thrombosis and embolism; Z95.2 Presence of prosthetic heart valve; Z87.891 Personal history of nicotine dependence; E66.8 Other obesity; Z68.37 Body mass index [BMI] 37.0-37.9, adult; Z79.82 Long term (current) use of aspirin; Z79.01 Long term (current) use of anticoagulants; Z23 Encounter for immunization
CPT/HCPCS: 23472; 01638; 64415; 36415; 36416; 71046; 73030; 80048; 82040; 82962; 83036; 83735; 85025; 85027; 85610; 85730; 87077; 87081; 88305; 88311; 93005; 94668; 96365; 96366; 97110; 97166; 97530; 97535; 99221; C1713; C1776; G0008; J7040; J7120; 90662; G0378; J2405; J3475